=== PATIENT | male | born 2000 | race Caucasian/White ===

== ENCOUNTER 2025-03-25 11:28 | Emergency (ER) | payer OTHER ==
[~2025-03-25] VITALS: Ht 177.8 cm; Wt 64.5 kg
[2025-03-25] MEDS: ASPIRIN 81 MG CHEWABLE TABLET PO ONE (12:21)
[2025-03-25 12:27] LABS: BASO # 0.0 10^3/uL (0.0-0.2); BASO % 0.4 % (0.0-1.0); EOS # 0.1 10^3/uL (0.0-0.5); EOS % 1.2 % (0.0-3.0); LYMPH # 2.0 10^3/uL (1.5-5.0); LYMPH % 40.1 % (24.0-44.0); MONO # 0.4 10^3/uL (0.0-0.8); MONO % 8.1 % (2.0-8.0); NEUTROPHILS # 2.5 10^3/uL (1.5-8.5); NEUTROPHILS % 50.0 % (36.0-66.0); PLATELET COUNT, AUTOMATED 235 10^3/uL (150-450)
[2025-03-25 13:00] LABS: CPK CREATINE PHOSPHOKINASE 167 U/L (46-171)
[2025-03-25 13:01] LABS: ALT/SGPT 18 U/L (7.0-40); AST/SGOT 26 U/L (<34); CALCIUM LEVEL 9.7 MG/DL (8.5-10.1); CARBON DIOXIDE LEVEL 27 MMOL/L (20-31); CHLORIDE LEVEL 100 MMOL/L (98-107); CK-MB VALUE MASS 1.5 NG/ML (<3.6); CREATININE FOR GFR 0.96 MG/DL (0.70-1.30); GLOMERULAR FILTRATION RATE > 90.0 (>60); MB/CK RELATIVE INDEX 0.89 (< OR =4); POTASSIUM SERUM 3.8 MMOL/L (3.5-5.1); SODIUM LEVEL 138 MMOL/L (136-145)
[2025-03-25 13:51] LABS: CK-MB VALUE MASS 1.3 NG/ML (<3.6); CPK CREATINE PHOSPHOKINASE 147.0 U/L (46-171); MB/CK RELATIVE INDEX 0.88 (< OR =4)
[2025-03-25] MEDS ORDERED: ASPI81TA26 PO (13:57)
[2025-03-25 14:10] VITALS: BP 138/62; TEMP 98.6; O2SAT 99
== END 2025-03-25 14:15 | disposition home or self-care (01) ==
LOC: M ED 12:23
DX: R07.9 Chest pain, unspecified (principal); R06.02 Shortness of breath; F10.10 Alcohol abuse, uncomplicated; Z88.0 Allergy status to penicillin; Z79.82 Long term (current) use of aspirin